=== PATIENT | male | born 1990 | race Caucasian/White ===

== ENCOUNTER → 2021-03-09 | Outpatient (CLI) | payer BC ==
--- NOTE | 2021-03-09 07:36 | US ---
EXAMINATION TYPE: US abdomen complete DATE OF EXAM: 03/09/2021 COMPARISON: NONE CLINICAL HISTORY: R10.11 RUQ PAIN. EXAM MEASUREMENTS: Liver Length: 13.5 cm Gallbladder Wall: 0.3 cm CBD: 0.2 cm Spleen: 13.9 cm Right Kidney: 10.7 x 4.9 x 5.5 cm Left Kidney: 10.9 x 5.2 x 6.0 cm Pancreas: Obscured by bowel gas Liver: Increased attenuation Gallbladder: No stones seen Evidence for sonographic Walker's sign: No CBD: wnl Spleen: wnl Right Kidney: No hydronephrosis or masses seen Left Kidney: No hydronephrosis or masses seen Upper IVC: wnl Abd Aorta: wnl The liver is fairly homogenous. The intrahepatic portion of the IVC and visualized abdominal aorta a re within normal limits. There is no evidence of shadowing mobile cholelithiasis. Common bile duct is unremarkable. The pancreas is not well seen on images saved secondary to overlying bowel gas per technologist. The spleen is unremarkable. Kidneys are symmetric and free of hydronephrosis. No glenna al lesions are seen. IMPRESSION: No acute findings are evident.
== END | disposition home or self-care (01) ==
LOC: RADUSWWP 06:56
PROVIDERS: ATTEND Internal Medicine
DX: R10.11 Right upper quadrant pain (principal)
CPT/HCPCS: 76700